=== PATIENT | female | born 1960 | race Hispanic/Latino ===

== ENCOUNTER → 2017-06-19 | Day surgery (SDC) | payer MEDICARE ==
[2017-06-18 09:35] LABS: ANION GAP 16.5 mmol/L (8-16); CALCIUM 9.8 mg/dL (8.4-10.2); CREATININE, SERUM 1.19 mg/dL (0.57-1.11); POTASSIUM 3.5 mmol/L (3.5-5.1)
[~2017-06-19] MED LIST: ACETAMINOPHEN/CODEINE 300MG - 30MG TAB ONE; ALENDRONATE SOD70 MG PO; AMLODIPINE BESY10 MG PO; ASPIRIN325 MG PO; ASPIRIN81 MG PO; BACITRACIN 50,000 UNIT VIAL ONE; BUPIVACAINE HCL 0.5% INJ 30 ML VIAL INJ ONE; CEFAZOLIN SOD 1 GM VIAL ONE; CLONIDINE HCL0.3 MG PO; DEXAMETHASONE SOD PHOS INJ 4 MG/ML VIAL ONE; ESTRADIOL0.5 MG PO; FENTANYL CITRATE/PF 100MCG/2 ML INJ ONE; FOLIC ACID1 MG PO; FUROSEMIDE20 MG PO; GABAPENTIN300 MG PO; GLYBURIDE-METF1 EACH PO; INSULIN REGULAR, HUMAN 100 UNIT/1 ML 3ML VIAL ONE; KETOROLAC TROMETHAMINE 30 MG/ML VIAL ONE; LEVOTHYROXINE25 MCG PO; LIDOCAINE HCL 2% LOCAL INJ 5 ML SDV VIAL INJ ONE; LISINOPRIL40 MG PO; LOVASTATIN40 MG PO; METHOTREXATE2.5 MG PO; METOPROLOL SUCC50 MG PO; MIDAZOLAM HCL 2 MG/2 ML VIAL ONE; MUPIROCIN 2% OINT 22 GM TUBE ONE; NAPROXEN250 MG PO; NAPROXEN375 MG PO; NAPROXEN500 M1 PO; ONDANSETRON HCL INJ 2 MG/ML VIAL ONE; OXYBUTYNIN CHLOR5 MG PO; PREDNISONE5 MG PO; PROPOFOL IV EMULSION 10 MG/ML 20 ML VIAL ONE; SEVOFLURANE INHAL SOLN 250 ML PEN BTL ONE; TYLENOL WITH C1 EACH PO; ULTRAM50 MG PO; WARFARIN SODIUM1 MG PO
--- OUTSIDE RECORDS SUMMARY | 2017-06-19 05:52 | XMS REPORT ---
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 Allergies, Adverse Reactions, Alerts This patient has no known allergies or adverse reactions. Medications This patient has no known medications. Results Test Description Test Time Test Comments Text Results Atomic Results Result Comments KNEE LEFT 1-2 VIEWS [place] [id number] Patient Name: RAVINDER STEWART MR #: [id number] : 1960 Age/Sex: 56/F Req #: [id number] [facility] Physician: Ordered by: TANISHA DIAZ MD Report #: [id number] Location: OR Room/Bed: Procedure: [id number] DX/KNEE LEFT 1-2 VIEWS Exam Date: 11/27/16 Exam Time: 0840 REPORT STATUS: Signed PROCEDURE: KNEE LEFT 1-2 VIEWS TECHNIQUE: PA and crosstable lateral views left knee INDICATION: Postop evaluation COMPARISON: None. FINDINGS: See conclusion. CONCLUSION: 1. Total left knee arthroplasty intact and in anatomic alignment. 2. Expected regional postsurgical changes including soft tissue edema, gas, and soft tissue keena. 3. No acute abnormality. Dictated by: Maycol Kumar M.D. on 11/27/2016 at 10:21 Electronically approved by: Maycol Kumar M.D. on 11/27/2016 at 10 :21 Dictated By: MAYCOL KUMAR MD 1021 Transcribed By: WILMA on 11/27/16 1021 COPY TO: TANIHSA DIAZ MD
[2017-06-19 06:44] LABS: BASOPHILS % 0.4 % (0.0-1.0); EOSINOPHILS # (AUTO) 0.2 (0.0-0.4); EOSINOPHILS % 1.7 % (0.0-6.0); HEMATOCRIT 34.6 % (34.2-44.1); HEMOGLOBIN 11.8 g/dL (12.0-16.0); LYMPHOCYTES # (AUTO) 2.1 (1.0-3.2); LYMPHOCYTES % 21.9 % (18.0-39.1); MEAN CORPUSCULAR HEMOGLOBIN 31.8 pg (28-32); MEAN CORPUSCULAR HGB CONC 34.1 g/dL (31-35); MEAN CORPUSCULAR VOLUME 93.3 fL (81-99); MONOCYTES # (AUTO) 0.7 (0.2-0.8); MONOCYTES % 7.7 % (4.4-11.3); NEUTROPHILS # (AUTO) 6.4 (2.1-6.9); PLATELET COUNT 317 x10e3/uL (140-360); RED BLOOD COUNT 3.71 x10e6/uL (3.6-5.1); RED CELL DISTRIBUTION WIDTH 14.5 % (11.7-14.4)
[2017-06-19 06:55] LABS: INR 1.13; PARTIAL THROMBOPLASTIN TIME 29.7 seconds (23.8-35.5); PROTHROMBIN TIME 13.6 seconds (11.9-14.5)
--- NOTE | 2017-06-19 11:01 | Operative Report ---
DATE OF PROCEDURE: June 19, 2017 HEEL SEAT LASTER: Abad Rodas PA-C The patient was brought to the operating room for induction of anesthesia. Throughout this case, my PA's assistance was necessary for retraction of soft tissue and positioning of the extremity. This allows for efficient and technically successful execution of the operation and is considered medically necessary. PREOPERATIVE DIAGNOSIS: Sequelae of right tibia fracture. POSTOPERATIVE DIAGNOSIS: Sequelae of right tibia fracture. PROCEDURE: Removal of the intramedullary nail, right tibia. INDICATIONS: The patient is a 57-year-old lady who is status post a right tibia fracture. This was fixed with an intramedullary nail. The fracture has gone on to heal. She has severe arthritis and multiple medical problems. She is highly motivated to have her left knee replaced. The risks and benefits of intramedullary nail removal to allow a later knee replacement were explained. She stated she understood and wished to proceed. DESCRIPTION OF PROCEDURE: The patient was brought to the operating room and placed under general anesthetic. She received prophylactic antibiotics in the holding area. Her right lower extremity was prepped and draped in a sterile manner. A preoperative time out was performed. The extremity was exsanguinated, and a proximal tourniquet was inflated to 300 mmHg. The previous incision over the anterior patella was opened. This was carried down through the patellar tendon. Abundant bone was covering the proximal end of the tibial nail. A C-arm image intensifier was used to assist in locating the proximal portion of the nail. This was debrided with a curette. The proximal interlocking screw was then removed. An intramedullary extraction device was attached to the nail. This was very difficult as the nail was buried in bone. This took a significant amount of time and difficulty. A fair amount of bone had to be cleared to accomplish this. Ultimately, the extraction device was attached and the nail was removed. The wound was thoroughly irrigated. The patellar tendon incision was closed with interrupted 0 Vicryl. The skin was closed with subcuticular Vicryl and keena. A sterile bandage was applied. She was extubated and transported to the recovery room in stable condition. Job#: [id number] [place]
== END | disposition home or self-care (01) ==
LOC: OR 05:50
PROVIDERS: ATTEND Specialist
DX: S82.201D Unspecified fracture of shaft of right tibia, subsequent encounter for closed fracture with routine healing (principal); E11.9 Type 2 diabetes mellitus without complications; Z79.84 Long term (current) use of oral hypoglycemic drugs; E03.9 Hypothyroidism, unspecified; I10 Essential (primary) hypertension; E78.00 Pure hypercholesterolemia, unspecified; M06.9 Rheumatoid arthritis, unspecified; Z01.810 Encounter for preprocedural cardiovascular examination; Z01.812 Encounter for preprocedural laboratory examination; Z86.718 Personal history of other venous thrombosis and embolism; Z96.652 Presence of left artificial knee joint; Z98.1 Arthrodesis status; Z79.01 Long term (current) use of anticoagulants; Z79.82 Long term (current) use of aspirin; Z79.52 Long term (current) use of systemic steroids
CPT/HCPCS: 20680; 36415 ×2; 76001; 80048; 82948; 85025; 85610; 85730; 93005; J0690; J1100; J1885; J2001; J2250; J2405

== ENCOUNTER 2017-08-20 09:00 | Observation (INO) | payer MEDICARE ==
[~2017-08-20] VITALS: Ht 157.5 cm; Wt 76.2 kg
[~2017-08-20 09:00] MED LIST changes: -ACETAMINOPHEN/CODEINE 300MG - 30MG TAB ONE; +ASPIRIN EC81 MG PO; -BUPIVACAINE HCL 0.5% INJ 30 ML VIAL INJ ONE; -CEFAZOLIN SOD 1 GM VIAL ONE; -DEXAMETHASONE SOD PHOS INJ 4 MG/ML VIAL ONE; +FAMOTIDINE20 MG PO; -FENTANYL CITRATE/PF 100MCG/2 ML INJ ONE; +GLIPIZIDE-METF1 EAC2; -INSULIN REGULAR, HUMAN 100 UNIT/1 ML 3ML VIAL ONE; -KETOROLAC TROMETHAMINE 30 MG/ML VIAL ONE; -LIDOCAINE HCL 2% LOCAL INJ 5 ML SDV VIAL INJ ONE; -MIDAZOLAM HCL 2 MG/2 ML VIAL ONE; -ONDANSETRON HCL INJ 2 MG/ML VIAL ONE; +OXYBUTYNIN CHLO15 MG; -PROPOFOL IV EMULSION 10 MG/ML 20 ML VIAL ONE; +ROPIVACAINE 246.25 MG, EPINEPHRINE HCL 1:1000 0.5 MG, CLONIDINE HCL 0.08 MG, KETOROLAC ... INJ ONE; -SEVOFLURANE INHAL SOLN 250 ML PEN BTL ONE; +TRANEXAMIC ACID 1,000 MG/10 ML ML ONE; +ULTRACET TABLE1 EACH; +WARFARIN SODIUM2 MG PO
[2017-08-20] MEDS ORDERED: CELECOXIB 200 MG CAP ONE (09:14)
[2017-08-20] MEDS ORDERED: DEXAMETHASONE SOD PHOS 10 MG/1 ML VIAL ONE (09:15)
[2017-08-20] MEDS ORDERED: CEFAZOLIN SOD 2 GM/D5W 50ML 50 ML IV ONE (09:15)
[2017-08-20] MEDS ORDERED: GABAPENTIN 300 MG CAP ONE (09:15)
[2017-08-20] MEDS ORDERED: TRANEXAMIC ACID 1,000 MG/10 ML ML ONE (09:21)
[2017-08-20] MEDS ORDERED: BACITRACIN 50,000 UNIT VIAL ONE (09:21)
[2017-08-20] MEDS ORDERED: MUPIROCIN 2% OINT 22 GM TUBE ONE (09:21)
[2017-08-20 10:06] LABS: INR 1.15; PROTHROMBIN TIME 13.8 seconds (11.9-14.5)
[2017-08-20] MEDS: SODIUM CHLORIDE 0.9% 1000ML 1,000 ML IV SCH ×2 (12:18→22:18)
[2017-08-20] MEDS ORDERED: ACETAMINOPHEN 650 MG SUPP PR PRN (12:30)
[2017-08-20] MEDS ORDERED: DIPHENHYDRAMINE HCL INJ 50 MG/ML VIAL IM/IV PRN (12:30)
[2017-08-20] MEDS ORDERED: PROMETHAZINE HCL (IM) 25 MG/ML VIAL IM PRN (12:30)
[2017-08-20] MEDS ORDERED: HYDROCODONE/APAP 7.5MG-325MG 1 EA TAB PO PRN (12:30)
[2017-08-20] MEDS ORDERED: ONDANSETRON HCL INJ 2 MG/ML VIAL IV PRN (12:30)
[2017-08-20] MEDS ORDERED: HYDROCODONE/APAP 5MG-325MG TAB PO PRN (12:30)
[2017-08-20] MEDS ORDERED: KETOROLAC TROMETHAMINE 30 MG/ML VIAL IV PRN (12:30)
[2017-08-20] MEDS ORDERED: DOCUSATE SODIUM 100 MG CAP PO PRN (12:30)
--- NOTE | 2017-08-20 13:48 | Diagnostic Imaging Report ---
PROCEDURE: X-RAY RIGHT KNEE, ONE OR TWO VIEWS COMPARISON: None. INDICATIONS:RIGHT POST OP KNEE TODAY FINDINGS: See conclusion. CONCLUSION: The cross table view is limited by slight rotation. Status post total right knee replacement with surrounding soft tissue swelling, air and keena consistent with recent surgery. No acute fractures. Proximal right leg soft tissue calcifications are probably phleboliths. Dictated by: Pieter Russell M.D. on 08/20/2017 at 13:52 Electronically approved by: Pieter Russell M.D. on 08/20/2017 at 13:52
[2017-08-20 15:04] VITALS: BP 117/56
[2017-08-20 15:07] VITALS: BP 117/56
[2017-08-20 16:06] VITALS: BP 117/56
[2017-08-20] MEDS ORDERED: NON-FORMULARY MEDICATION (Lisinopril 40 MG) PO SCH (17:00)
[2017-08-20] MEDS ORDERED: CELECOXIB 100 MG CAP PO SCH (17:00)
[2017-08-20] MEDS ORDERED: WARFARIN SOD 2 MG TAB PO SCH (17:00)
[2017-08-20] MEDS: ACETAMINOPHEN 1000 MG/100 ML IV SCH (17:04)
[2017-08-20] MEDS ORDERED: PROPOFOL IV EMULSION 10 MG/ML 20 ML VIAL ONE (17:14)
[2017-08-20] MEDS ORDERED: SEVOFLURANE INHAL SOLN 250 ML PEN BTL ONE (17:14)
[2017-08-20] MEDS ORDERED: LIDOCAINE HCL 2% LOCAL INJ 5 ML SDV VIAL INJ ONE (17:14)
[2017-08-20] MEDS ORDERED: DEXAMETHASONE SOD PHOS INJ 4 MG/ML VIAL ONE (17:14)
[2017-08-20] MEDS ORDERED: ONDANSETRON HCL INJ 2 MG/ML VIAL ONE (17:14)
[2017-08-20] MEDS: CEFAZOLIN SOD 1 GM/D5W 50ML 50 ML IV SCH (17:23)
[2017-08-20] MEDS: GLIPIZIDE 5 MG TAB PO SCH (17:45)
[2017-08-20] MEDS: METFORMIN HCL 500 MG TAB PO SCH (17:46)
[2017-08-20] MEDS: CELECOXIB 200 MG CAP PO SCH (17:46)
[2017-08-20] MEDS: LISINOPRIL 20 MG TAB PO SCH (17:46)
[2017-08-20] MEDS: GABAPENTIN 300 MG CAP PO SCH (17:46)
[2017-08-20] MEDS: METOPROLOL SUCCINATE 50 MG TAB XL PO SCH (17:46)
[2017-08-20] MEDS ORDERED: ROPIVACAINE 0.5% 5 MG/ML 30 ML SDV ONE (17:53)
[2017-08-20] MEDS ORDERED: LIDOCAINE 2% /EPINEPHRINE 20 ML SDV INJ ONE (17:53)
[2017-08-20] MEDS ORDERED: FENTANYL CITRATE/PF 100MCG/2 ML INJ ONE (18:00)
[2017-08-20] MEDS ORDERED: MIDAZOLAM HCL 2 MG/2 ML VIAL ONE (18:00)
[2017-08-20 20:00] VITALS: BP 100/54
[2017-08-20] MEDS: CLONIDINE HCL 0.3 MG TAB PO SCH (20:09)
[2017-08-20] MEDS: ENOXAPARIN SOD INJ 40 MG/0.4 ML SYR SC SCH (20:25)
[2017-08-20] MEDS ORDERED: ZOLPIDEM TARTRATE 5 MG TAB PO PRN (21:00)
[2017-08-20] MEDS ORDERED: SIMVASTATIN 20 MG TAB PO SCH (21:00)
[2017-08-20] MEDS ORDERED: SIMVASTATIN 40 MG TAB PO SCH (21:00)
[2017-08-21] VITALS: BP 116/60
[2017-08-21] MEDS: ACETAMINOPHEN 1000 MG/100 ML IV SCH ×3 (00:15→12:00)
[2017-08-21] MEDS: CEFAZOLIN SOD 1 GM/D5W 50ML 50 ML IV SCH ×2 (02:21→08:55)
[2017-08-21 04:00] VITALS: BP 155/74
[2017-08-21 05:54] LABS: HEMATOCRIT 31.4 % (34.2-44.1); HEMOGLOBIN 10.5 g/dL (12.0-16.0)
[2017-08-21] MEDS ORDERED: LEVOTHYROXINE SODIUM 25 MCG TABLET PO SCH (06:00)
[2017-08-21 06:08] LABS: INR 1.25; PROTHROMBIN TIME 14.8 seconds (11.9-14.5)
[2017-08-21] MEDS ORDERED: FAMOTIDINE 20 MG TAB PO SCH (07:30)
[2017-08-21] MEDS: SODIUM CHLORIDE 0.9% 1000ML 1,000 ML IV SCH (08:18)
[2017-08-21] MEDS: METFORMIN HCL 500 MG TAB PO SCH (08:27)
[2017-08-21] MEDS: GLIPIZIDE 5 MG TAB PO SCH (08:27)
[2017-08-21] MEDS: GABAPENTIN 300 MG CAP PO SCH (08:28)
[2017-08-21] MEDS: CELECOXIB 200 MG CAP PO SCH (08:28)
[2017-08-21] MEDS: CLONIDINE HCL 0.3 MG TAB PO SCH ×2 (08:28→14:21)
[2017-08-21] MEDS: METOPROLOL SUCCINATE 50 MG TAB XL PO SCH (08:29)
[2017-08-21] MEDS: LISINOPRIL 20 MG TAB PO SCH (08:29)
[2017-08-21 08:40] VITALS: BP 180/82
[2017-08-21] MEDS ORDERED: METHOTREXATE SOD 2.5 MG TAB PO SCH (09:00)
[2017-08-21] MEDS ORDERED: FUROSEMIDE 20 MG TAB PO SCH (09:00)
[2017-08-21] MEDS ORDERED: ASPIRIN 81 MG ENTERIC COATED PO SCH (09:00)
[2017-08-21] MEDS ORDERED: AMLODIPINE BESYLATE 10 MG TAB PO SCH (09:00)
[2017-08-21] MEDS ORDERED: PREDNISONE 5 MG TAB PO SCH (09:00)
[2017-08-21] MEDS ORDERED: FOLIC ACID 1 MG TAB PO SCH (09:00)
[2017-08-21 09:22] VITALS: BP 180/82
[2017-08-21] MEDS ORDERED: ACETAMINOPHEN 1000 MG/100 ML IV PRN (12:30)
[2017-08-21 12:56] VITALS: BP 135/80
[2017-08-21] MEDS: ENOXAPARIN SOD INJ 40 MG/0.4 ML SYR SC SCH (15:02)
--- NOTE | 2017-08-21 18:07 | Operative Report ---
DATE OF PROCEDURE: August 20, 2017 PRIZE COORDINATOR: Abad Rodas PA-C The patient was brought to the operating room for induction of anesthesia. Throughout this case, my PA's assistance was necessary for retraction of soft tissue and positioning of the extremity. This allows for efficient and technically successful execution of the operation and is considered medically necessary. PREOPERATIVE DIAGNOSIS: Severe rheumatoid arthritis, right knee *previously operated knee. POSTOPERATIVE DIAGNOSIS: Severe rheumatoid arthritis, right knee *previously operated knee. PROCEDURE: Right total knee arthroplasty *added complexity secondary to the severity of the contracture and previous surgery. INDICATIONS: The patient is a 57-year-old lady with severe untreated rheumatoid arthritis of her right knee. She came under my care when she had a fracture of her right tibia. This was treated with a tibial nail. This went on to heal and the nail was removed. She has been through a left knee replacement. She has severe, nearly ankylosed, rheumatoid arthritis of the right knee. The findings and options have been discussed. She would like to proceed with a right total knee replacement. She is happy with the left side. The risks and benefits and challenges were explained. She stated she understood and wished to proceed. DESCRIPTION OF PROCEDURE: The patient brought to the operating room and placed under general anesthetic. Her right lower extremity was prepped and draped in a sterile manner. She received prophylactic antibiotics and tranexamic acid in the holding area. A preoperative time out was performed. Her right extremity was exsanguinated and a proximal tourniquet was inflated to 300 mmHg. An anterior incision incorporating the previous tibial nail incision was made. Soft tissue releases were performed to initiate patellar eversion. The severe wear of the patella required some debridement to allow eversion. A lateral retinacular release was also necessary to ignacio the patella. A synovectomy was performed due to the severe intraarticular contractures. The knee was ultimately brought up into flexion. Meniscal remnants and marginal osteophytes were removed. Care was taken due to the for quality of the bone secondary to her advanced rheumatoid arthritis. An extramedullary cutting guide was used to resect the proximal tibia. This was referenced off of the medial compartment. The tibial baseplate was noted to be a size 3. The central fin punch was impacted and attention was directed towards the distal femur. An intramedullary cutting guide was used to resect the distal femur in 6 degrees of valgus and rotation referenced off of a combination of landmarks including Angel line, the epicondylar axis and posterior condyles. The femoral component was a size number 4. The anterior posterior and notch cuts were made. There was severe lateral contracture. A lamina clock assembler was placed. The lateral structures were sequentially released. An aggressive lateral soft tissue release was necessary to balance the knee. I had to elevate all of the tissue off the lateral femoral condyle. Ultimately, a 9 mm ultra congruent tibial insert provided optimal soft tissue balancing in flexion and extension. The patella was resurfaced with a 29 mm x 7.5 mm patellar button. The patellar thickness was roughly 20 mm after the resurfacing. The knee was very tight in flexion beyond 80 degrees. The quadriceps were severely contracted. The trial implants were then removed. A 100 mL premixed pericapsular CHENG injection was placed into the surrounding soft tissue. The knee was thoroughly irrigated with a shower-tip pulsatile lavage. The components were cemented into place with a single mix of Palacos cement preloaded with antibiotics. Care was taken to remove all extravasated cement. The wound was further irrigated with the pulsatile lavage. The arthrotomy was closed with interrupted number 1 Ethibond. The knee was put through flexion from 0 degrees to 90 degrees without any evidence of disruption of the arthrotomy closure. The skin was carefully closed with subcuticular Vicryl and keena. The skin was thin. She was placed into a sterile bandage and a knee immobilizer. She was extubated and transported to the recovery room in stable condition. Blood loss was less than 50 mL and all needle and sponge counts were correct. Job#: [id number]
== END 2017-08-21 15:14 | disposition home or self-care (01) ==
LOC: OR 09:00 → PACU V 12:21 → MED/SURG 14:46
PROVIDERS: ADMIT Specialist; ATTEND Specialist
DX: M06.861 Other specified rheumatoid arthritis, right knee (principal); M24.561 Contracture, right knee; E11.51 Type 2 diabetes mellitus with diabetic peripheral angiopathy without gangrene; K29.70 Gastritis, unspecified, without bleeding; E78.5 Hyperlipidemia, unspecified; Z86.718 Personal history of other venous thrombosis and embolism; Z96.652 Presence of left artificial knee joint; Z79.01 Long term (current) use of anticoagulants; E03.9 Hypothyroidism, unspecified; E11.22 Type 2 diabetes mellitus with diabetic chronic kidney disease; I12.9 Hypertensive chronic kidney disease with stage 1 through stage 4 chronic kidney disease, or unspecified chronic kidney disease; N18.9 Chronic kidney disease, unspecified; D64.9 Anemia, unspecified
CPT/HCPCS: 27447; 36415 ×2; 73560; 82948 ×2; 85014; 85018; 85610 ×2; 85730; 86850; 86900; 86920; 97116; 97139 ×2; 97162; 97530 ×2; C1713; G0378 ×2; G8978; G8979; J0171; J1100 ×2; J1650 ×2; J1885 ×2; J2001 ×2; J2250; J2405; J2795; J7030; J7512

== ENCOUNTER → 2018-06-27 | Outpatient (CLI) | payer MEDICARE ==
[~2018-06-27] MED LIST changes: -BACITRACIN 50,000 UNIT VIAL ONE; -MUPIROCIN 2% OINT 22 GM TUBE ONE; -ROPIVACAINE 246.25 MG, EPINEPHRINE HCL 1:1000 0.5 MG, CLONIDINE HCL 0.08 MG, KETOROLAC ... INJ ONE; -TRANEXAMIC ACID 1,000 MG/10 ML ML ONE
--- NOTE | 2018-06-27 10:45 | Diagnostic Imaging Report ---
MRI of the right forefoot without contrast. History: Osteomyelitis. Foot pain. Decreased range of motion. Second toe.. Technique: Multiplanar multisequence MRI of the foot without contrast Comparison: None Findings: There is abnormal bone marrow edema and abnormal soft tissue edema centered at the second toe proximal interphalangeal joint and involving the middle phalanx of the second toe. This is best seen on sagittal image 15 and 16. No well-formed drainable fluid collection/abscess is seen. The findings are worrisome for osteomyelitis. Scattered degenerative changes are seen with lateral subluxation of the first toe. No acute fracture or avascular necrosis. Mild diffuse muscle atrophy. No ligamentous or tendon tear. The visualized neurovascular bundles are intact. Mild soft tissue edema most pronounced at the dorsal foot. Impression: Abnormal bone marrow edema and abnormal soft tissue edema centered at the second toe proximal interphalangeal joint and involving the middle phalanx of the second toe. No well-formed drainable fluid collection/abscess is seen. The findings are worrisome for osteomyelitis. Signed by: Dr. Jeremy Moreno M.D. on 06/27/2018 10:42 AM
== END ==
LOC: MRI 08:37
PROVIDERS: ATTEND Podiatrist Foot & Ankle Surgery
DX: M86.071 Acute hematogenous osteomyelitis, right ankle and foot (principal)

== ENCOUNTER → 2018-07-12 | Day surgery (SDC) | payer MEDICARE ==
[2018-07-11 16:06] LABS: ANION GAP 14.2 mmol/L (8-16); CREATININE, SERUM 1.01 mg/dL (0.57-1.11); POTASSIUM 4.2 mmol/L (3.5-5.1)
--- NOTE | 2018-07-11 16:33 | Diagnostic Imaging Report ---
EXAMINATION: CHEST 2 VIEWS INDICATION: Pre-operative COMPARISON: None FINDINGS: TUBES and LINES: None. LUNGS: Lungs are well inflated. There is no evidence of pneumonia or pulmonary edema. PLEURA: No pleural effusion or pneumothorax. HEART AND MEDIASTINUM: The cardiomediastinal silhouette is unremarkable. There are atherosclerotic calcifications within the aorta. BONES AND SOFT TISSUES: Healing subacute left lateral sixth and seventh rib fractures. UPPER ABDOMEN: No free air under the diaphragm. IMPRESSION: Clear lungs. Healing subacute left lateral sixth and seventh rib fractures. Signed by: Dr. Staci Strauss MD on 07/11/2018 4:30 PM
[~2018-07-12] MED LIST changes: +BACITRACIN 50,000 UNIT VIAL ONE; +BUPIVACAINE HCL 0.5% INJ 30 ML VIAL INJ ONE; +CEFAZOLIN SOD 1 GM/NS 50ML 50 ML IV ONE; +DESFLURANE 240 ML BTL INH ONE; +DEXAMETHASONE SOD PHOS 10 MG/1 ML VIAL ONE; +DEXAMETHASONE SOD PHOS INJ 4 MG/ML VIAL ONE; +FENTANYL CITRATE/PF 100MCG/2 ML INJ ONE; +GLIMEPIRIDE4 MG; +IBUPROFEN400 MG PO; +INSULIN REGULAR, HUMAN 100 UNIT/1 ML 3ML VIAL ONE; +LIDOCAINE HCL 2% LOCAL INJ 5 ML SDV VIAL INJ ONE; +METOCLOPRAMIDE HCL 10 MG/2ML VIAL ONE; +MIDAZOLAM HCL 2 MG/2 ML VIAL ONE; +ONDANSETRON HCL INJ 2MG/ML 2ML 2 MG/ML VIAL ONE; +PROPOFOL IV EMULSION 10 MG/ML 20 ML VIAL ONE
--- NOTE | 2018-07-12 07:38 | Operative Report ---
DATE OF PROCEDURE: 07/12/2018 SURGEON: Herminia Cook DPM PREOPERATIVE DIAGNOSIS: Right 2nd digit osteomyelitis. POSTOPERATIVE DIAGNOSIS: Right 2nd digit osteomyelitis. PLANNED PROCEDURE: Right 2nd digit amputation. ANESTHESIA: General with a postoperative block consisting of 10 mL of 0.5% Marcaine plain. HEMOSTASIS: Pneumatic ankle tourniquet set at 250 mmHg for a total time of approximately 10 minutes. MATERIALS: 3-0 nylon. ESTIMATED BLOOD LOSS: Less than 10 mL. PATHOLOGY: Right 2nd digit sent for gross specimen. PROCEDURE NOTE: The patient was seen in the preoperative waiting room, and the correct procedure and site was identified. The patient was brought to the operating room, placed on the operating table in the supine position. General anesthesia was initiated. At this time, a well-padded pneumatic tourniquet was placed about the patient's right ankle. The right upper neck was prepped and draped in the usual aseptic manner. The right foot, ankle, and leg was exsanguinated with an Esmarch bandage and the pneumatic thigh tourniquet was inflated to 350 mmHg for a total time of approximately 10 minutes. Attention was directed to the distal aspect of the patient's right foot where a large bunion deformity was noted with a severely contracted 2nd digit with a deep probing ulceration to the dorsal aspect of the proximal interphalangeal joint. The decision was made to proceed with amputation of the digit. Utilizing a #15 blade, two large converging semi-elliptical incisions were made at the level of the metatarsophalangeal joint. Incision was carried directly down to the level of bone. The 2nd metatarsophalangeal joint was easily identified and the digit was grasped distally with a towel clamp and disarticulated and passed off to the back table, to be sent for gross specimen. The amputation site was then flushed with copious amounts of sterile saline mixed with bacitracin. The incision site was reapproximated utilizing simple interrupted sutures with 3-0 nylon. The patient tolerated the procedure and anesthesia well. The patient was transferred to the postoperative recovery room with vital signs stable and vascular status intact. The patient was monitored there for short period time before being sent home with the following written and oral instructions. 1. Keep the dressing clean, dry, and intact. 2. The patient is to remain partial heel touch weightbearing, to avoid excess ambulation until being seen in the office. 3. The patient was given the office number and try to contact us if any problems that arise. HAYLEE Rodriguez/GOMEZ /[id number]
[2018-07-12 08:15] VITALS: BP 112/65
== END | disposition home or self-care (01) ==
LOC: OR 05:00
PROVIDERS: ATTEND Podiatrist Foot & Ankle Surgery
DX: M86.171 Other acute osteomyelitis, right ankle and foot (principal); M86.671 Other chronic osteomyelitis, right ankle and foot; M21.611 Bunion of right foot; M65.871 Other synovitis and tenosynovitis, right ankle and foot; M06.9 Rheumatoid arthritis, unspecified; E03.9 Hypothyroidism, unspecified; E11.9 Type 2 diabetes mellitus without complications; I10 Essential (primary) hypertension; Z01.810 Encounter for preprocedural cardiovascular examination; Z01.812 Encounter for preprocedural laboratory examination; Z01.818 Encounter for other preprocedural examination; Z96.653 Presence of artificial knee joint, bilateral; Z96.642 Presence of left artificial hip joint
CPT/HCPCS: 28820; 36415 ×2; 71046; 80048; 82948; 88305; 88311; 93005; J0690; J2001; J2250; J2405; J2704; J2765; 88304; J1100

== ENCOUNTER → 2019-05-13 | Outpatient (CLI) | payer MEDICARE ==
[~2019-05-13] MED LIST changes: -BACITRACIN 50,000 UNIT VIAL ONE; -BUPIVACAINE HCL 0.5% INJ 30 ML VIAL INJ ONE; -CEFAZOLIN SOD 1 GM/NS 50ML 50 ML IV ONE; -DESFLURANE 240 ML BTL INH ONE; -DEXAMETHASONE SOD PHOS 10 MG/1 ML VIAL ONE; -DEXAMETHASONE SOD PHOS INJ 4 MG/ML VIAL ONE; -FENTANYL CITRATE/PF 100MCG/2 ML INJ ONE; -INSULIN REGULAR, HUMAN 100 UNIT/1 ML 3ML VIAL ONE; -LIDOCAINE HCL 2% LOCAL INJ 5 ML SDV VIAL INJ ONE; -METOCLOPRAMIDE HCL 10 MG/2ML VIAL ONE; -MIDAZOLAM HCL 2 MG/2 ML VIAL ONE; -ONDANSETRON HCL INJ 2MG/ML 2ML 2 MG/ML VIAL ONE; -PROPOFOL IV EMULSION 10 MG/ML 20 ML VIAL ONE
== END ==
LOC: RAD 16:08
PROVIDERS: ATTEND Podiatrist Foot & Ankle Surgery
DX: M79.662 Pain in left lower leg (principal); M79.661 Pain in right lower leg; M79.89 Other specified soft tissue disorders
CPT/HCPCS: 93970

== ENCOUNTER → 2020-05-10 | Day surgery (SDC) | payer MEDICARE ==
[2020-05-06 09:06] LABS: ANION GAP 17.1 mmol/L (8-16); CALCIUM 8.4 mg/dL (8.4-10.2); CREATININE, SERUM 1.27 mg/dL (0.57-1.11); POTASSIUM 4.1 mmol/L (3.5-5.1)
[~2020-05-10] MED LIST changes: +BUPIVACAINE HCL 0.5% INJ 30 ML VIAL INJ ONE; +CEFAZOLIN SOD 1 GM/NS 50ML 50 ML IV ONE; +DEXAMETHASONE SOD PHOS INJ 4 MG/ML VIAL ONE; +GLYCOPYRROLATE INJ 0.2 MG/ML VIAL ONE; +INSULIN REGULAR, HUMAN 100 UNIT/1 ML 3ML VIAL ONE; +LIDOCAINE HCL 2% LOCAL INJ 5 ML SDV VIAL INJ ONE; +ONDANSETRON HCL INJ 2MG/ML 2ML 2 MG/ML VIAL ONE; +PROPOFOL IV EMULSION 10 MG/ML 20 ML VIAL ONE; +SEVOFLURANE INHAL SOLN 250 ML PEN BTL ONE
[2020-05-10 08:05] VITALS: BP 107/60
== END | disposition home or self-care (01) ==
LOC: OR 05:21
PROVIDERS: ATTEND Podiatrist Foot & Ankle Surgery
DX: M20.42 Other hammer toe(s) (acquired), left foot (principal); E11.621 Type 2 diabetes mellitus with foot ulcer; L97.529 Non-pressure chronic ulcer of other part of left foot with unspecified severity; E11.22 Type 2 diabetes mellitus with diabetic chronic kidney disease; I12.9 Hypertensive chronic kidney disease with stage 1 through stage 4 chronic kidney disease, or unspecified chronic kidney disease; N18.9 Chronic kidney disease, unspecified; I25.10 Atherosclerotic heart disease of native coronary artery without angina pectoris; M06.9 Rheumatoid arthritis, unspecified; M19.90 Unspecified osteoarthritis, unspecified site; E78.5 Hyperlipidemia, unspecified; Z01.810 Encounter for preprocedural cardiovascular examination; Z01.818 Encounter for other preprocedural examination; Z01.812 Encounter for preprocedural laboratory examination; Z20.822 Contact with and (suspected) exposure to COVID-19; Z79.84 Long term (current) use of oral hypoglycemic drugs; Z79.82 Long term (current) use of aspirin; Z98.61 Coronary angioplasty status
CPT/HCPCS: 28272; 28820; 36415 ×2; 71046; 80048; 82948; 93005; J0690; J1100; J1817; J2001; J2405; J2704; U0002